=== PATIENT | female | born 2000 ===

== ENCOUNTER 2021-09-14 02:05 | Outpatient (CLI) | payer OTHER | END 2021-09-14 12:50 | disposition home or self-care (01) | LOC: OBS/DEL 02:05 | PROVIDERS: ATTEND Obstetrics & Gynecology | DX: O26.892 Other specified pregnancy related conditions, second trimester (principal); Z3A.24 24 weeks gestation of pregnancy; R10.2 Pelvic and perineal pain ==

== ENCOUNTER 2022-01-01 18:40 | Inpatient (IN) | payer OTHER ==
[~2022-01-01] VITALS: Ht 160 cm; Wt 61.7 kg
[2022-01-01] MEDS ORDERED: PRENATAL TABLE1 EAC3 PO (19:47)
== END 2022-01-05 14:02 | disposition home or self-care (01) | DRG 788 ==
LOC: LDR 18:40 → OB/GYN 01-02 20:56
PROVIDERS: ADMIT Obstetrics & Gynecology; ATTEND Obstetrics & Gynecology
PROC: 4A1HXCZ Monitoring of Products of Conception, Cardiac Rate, External Approach (ICD-10-PCS; 2022-01-01)
PROC: 10D00Z1 Extraction of Products of Conception, Low, Open Approach (ICD-10-PCS; principal; 2022-01-02 19:30)
DX: O36.5930 Maternal care for other known or suspected poor fetal growth, third trimester, not applicable or unspecified (principal); Z3A.38 38 weeks gestation of pregnancy; Z37.0 Single live birth; Z20.822 Contact with and (suspected) exposure to COVID-19

== ENCOUNTER 2022-01-12 09:50 | Emergency (ER) | payer OTHER ==
[~2022-01-12] VITALS: Ht 165.1 cm; Wt 59.0 kg
[~2022-01-12 09:50] MED LIST: PRENATAL TABLE1 EAC3 PO
[2022-01-12] MEDS ORDERED: AMOX1TAB5 PO (10:08)
== END 2022-01-12 11:27 | disposition home or self-care (01) ==
LOC: ER 09:50
DX: O90.0 Disruption of cesarean delivery wound (principal); O86.01 Infection of obstetric surgical wound, superficial incisional site; B96.5 Pseudomonas (aeruginosa) (mallei) (pseudomallei) as the cause of diseases classified elsewhere; B96.89 Other specified bacterial agents as the cause of diseases classified elsewhere